=== PATIENT | female | born 2000 | race Caucasian/White ===

== ENCOUNTER 2021-01-08 19:38 | Inpatient (IN) | payer MEDICAID ==
[~2021-01-08] VITALS: Ht 160 cm; Wt 89.8 kg
[2021-01-08 19:41] VITALS: BP 137/79
[2021-01-08] MEDS ORDERED: FLUOXETINE HCL40 MG PO (19:53)
--- NOTE | 2021-01-08 20:09 | NUR ---
[facility] CONTACTED. THEY WILL FAX OVER INFORMATION, PHYLICIA NOTIFIED OF THEIR RECOMMENDATIONS.
--- NOTE | 2021-01-08 20:17 | NUR ---
GETS FLUOXETINE FROM FAMILY , IT COMES MAIL ORDER AND THEY SEND IT TO HER
[2021-01-08 20:26] LABS: AMP/METHAMP Negative (Negative); BARBITURATES Negative (Negative); BENZODIAZEPINES Negative (Negative); COCAINE Negative (Negative); METHADONE Negative (Negative); OPIATES Negative (Negative); PCP Negative (Negative)
[2021-01-08 20:31] LABS: ABSOLUTE NEUTROPHILS 6.3 thou/uL (1.4-8.2); BASOPHILS 0.2 % (0.0-2.0); EOSINOPHILS 0.6 % (0.0-3.0); HEMATOCRIT 37.9 % (37.0-47.0); HEMOGLOBIN 12.8 gm/dL (12.0-15.0); LYMPHOCYTES 24.7 % (24.0-44.0); MCHC 33.8 g/dL (28.0-37.0); MCV 88.8 fL (80.0-100.0); MONOCYTES 8.6 % (1.0-8.0); PLATELET COUNT 363 thou/uL (150-400); POLYS 65.9 % (36.0-66.0); RBC 4.27 mil/uL (4.20-5.00); RDW 12.7 % (10.5-14.5); WBC 9.6 thou/uL (4.0-11.0)
[2021-01-08 20:44] LABS: ANION GAP 7 mmol/L (7-16); BUN 9 mg/dL (7-18); CALCIUM 8.8 mg/dL (8.5-10.1); CHLORIDE 104 mmol/L (98-107); CO2 27 mmol/L (21-32); CREATININE 0.8 mg/dL (0.6-1.0); GLUCOSE 100 mg/dL (74-106); POTASSIUM 3.5 mmol/L (3.5-5.1); SODIUM 138 mmol/L (136-145)
[2021-01-08 20:50] LABS: ALBUMIN 3.6 g/dL (3.4-5.0); DIRECT BILIRUBIN < 0.1 mg/dL (<0.1-0.2); SALICYLATE < 2.8 mg/dL (2.8-20.0); SGOT 19 U/L (15-37); SGPT 29 U/L (14-59); TOTAL BILIRUBIN 0.3 mg/dL (0.2-1.0); TOTAL PROTEIN 7.5 g/dL (6.4-8.2)
[2021-01-08 21:32] VITALS: BP 123/81
[2021-01-08 21:56] VITALS: BP 118/70
--- NOTE | 2021-01-08 22:30 | NUR ---
Admission history and assessments completed. Care plan initiated. IV fluids started, Zofrn givn for nausea. Seizure precautions.
--- NOTE | 2021-01-08 23:30 | NUR ---
Witnessed tonic clonic seizures for approximately 2 minutes. Tachycardic post ictal.
[2021-01-08 23:48] VITALS: BP 123/72
[2021-01-09] VITALS (17 sets, daily range): BP systolic 103–140; BP diastolic 46–76
--- NOTE | 2021-01-09 01:00 | NUR ---
Meghna VILLELA updated with events. Repeat EKG shows prolonged QT, tachycardia. Medication orders received. Orders to transfer to ICU for closer monitoring.
[2021-01-09 02:02] LABS: CALCIUM 8.3 mg/dL (8.5-10.1); CREATININE 0.8 mg/dL (0.6-1.0); POTASSIUM 3.1 mmol/L (3.5-5.1)
--- NOTE | 2021-01-09 02:20 | NUR ---
Patient awake, vomited total 4x while on 3W. IVfluids infusing, Bicard and Lorazepam given. Transfered to 241-Report given to Muna SANCHEZ.
--- NOTE | 2021-01-09 02:35 | NUR ---
PT ARRIVED FROM VIA BED ACCOMPANIED BY NURSE, 1:1 SITTER, AND A DIALER. PRIOR TO PT ARRIVING THE ROOM WAS SWEPT OFF ALL OBJECTS AND SEIZURE PRECAUTIONS WERE PUT IN PLACE. PT CONNECTED TO ICU MONITOR AND ASSESSED PER PROTOCOL. PT REPORTS MILD NAUSEA, DIPLOPIA, AND STOMACH PAIN. PT IS ALERT AND ORIENTED. PT REPORTS WE CAN CONTACT HER MOM, BUT SHE DOES NOT KNOW HER PHONE NUMBER.
--- NOTE | 2021-01-09 06:30 | NUR ---
0451 - POISION CONTROL CALLED BACK TO FOLLOW UP ON PT. ASKING THAT WE TRY TO KEEP ELECTROLYTES IN THE HIGH/NORMAL RANGE AND WATCH FOR SIGNS OF SERATONIN SYNDROME. [facility]ISON [facility]OL DIRECT NUMBER: [phone] - ATTEMPTED TO REACH OUT TO PT MOM LEVON. PT IS MUCH MORE LUCID THIS AM, A&OX4 SAID WE COULD CONTACT MOM AND SHARE ALL INFORMATION WITH HER. MEDICAL RECORD HAS BEEN UPDATED. PT HAS NOT VOIDED SINCE ARRIVAL TO THE ICU AT 0217. PT WAS ABLE TO AMBULATE TO THE TOILET BUT WAS UNSUCCESSFUL. BLADDER SCAN SHOWED 457ML. PT IS REALLY AGAINST A ESPANA, WILL ATTEMPT TO URINATE AGAIN WITHIN THE HOUR.
[2021-01-09 06:48] LABS: MAGNESIUM 2.7 mg/dL (1.8-2.4); POTASSIUM 3.7 mmol/L (3.5-5.1)
--- NOTE | 2021-01-09 06:55 | EKG ---
[address] [address] ELECTROCARDIOGRAM REPORT Name: LESLEE LAWSON Room #: 241-P ADM IN M.R.#: [id number] Admission: 01/08/21 Attend Phys: Mustapha Duran MD Discharge: Date of : 00 Report #: [id number] [facility] ED Test Date: 2021-01-08 Test Time: 20:16:24 Pat Name: LESLEE LAWSON Department: Room: 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
--- NOTE | 2021-01-09 06:56 | EKG ---
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2000 Requested By: Meghna Banda Order Number: [id number] MD: Jose Brewer Measurements Intervals [place] Rate: 112 P: 68 [place]: 169 QRS: 43 QRSD: 82 T: 31 QT: 372 QTc: 508 Interpretive Statements Sinus tachycardia Prolonged QT interval Baseline wander in lead(s) V6 Compared to ECG 01/08/2021 20:16:24 Prolonged QT interval now present Sinus rhythm no longer present Electronically Signed On 01-09-2021 6:55:49 CDT by Jose Brewer [email or web address] <ELECTRONICALLY SIGNED> By: Jose Brewer MD, [facility] 01/09/21 0655 013 0133 Jose Brewer MD, [facility] /EPI
--- NOTE | 2021-01-09 08:50 | EKG ---
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
--- NOTE | 2021-01-09 09:02 | EKG ---
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
--- NOTE | 2021-01-09 10:30 | NUR ---
0815-UP TO TOILET TO VOID (NO SUCCESS) W MOD ASSIST X2 & GAIT BELT.PT W VISABLE TREMORS & EXTREMELY WEAK. PT VOMITED ALMOST IMMED p SITTING DOWN,LG AMT,~300ML) OF LIGHT YELLOW BILE. NAUSEA PERSISTS. CLEANED UP, BRUSHED HER TEETH,BACK TO BED & CASTILLO TRAVIS & EVERT IN. 1:1 SITTER AT BEDSIDE. ROOM HAD BEEN SCRUBBED,RECHECKED ON INITIAL TAKE OVER OF PT. PPT'S MOM CALLED IN TO OFFER THAT PT HAD CALLED HER THIS PAST WEDNESDAY,INFORMING HER OF HER MORE RECENT OVERDOSE ~2 WEEKS AGO.--VW
--- NOTE | 2021-01-09 12:05 | NUR ---
A #4F MIDLINE WAS PLACED FOR A PATIENT NEEDING ADDITIONAL ACCESS IN THE ICU. DISCUSSED PLACEMENT WITH THE PATIENT AND SHE VERBALIZED UNDERSTANDING OF RISKS AND BENIFITS. THE MIDLINE WAS TRIMMED TO 12CM AND ADVANCED WITHOUT DIFFICULTY PER HOSPITAL POLICY. LINE SECURED AND RELEASED FOR USE
--- NOTE | 2021-01-09 14:45 | NUR ---
tayler visited with brent at bedside, she has 1-1 sitter, SI. slow soft spoke. intro to cm and dcp. 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 she been inpt rehab in past in [place] for SI. lives with roommates, feels safe at home. independent when feeling ok. manage own medication, drives vehicle, no dme needs. will cont following as needed for dc needs. discussed during los, possible be her for few day before stable to dc to [facility] for therapy.
[2021-01-10 04:19] LABS: HEMATOCRIT 32.2 % (37.0-47.0); HEMOGLOBIN 11.2 gm/dL (12.0-15.0); MCH 31.1 pg (26.0-34.0); MCHC 34.7 g/dL (28.0-37.0); MCV 89.7 fL (80.0-100.0); RBC 3.59 mil/uL (4.20-5.00); WBC 8.7 thou/uL (4.0-11.0)
[2021-01-10 04:31] LABS: CALCIUM 8.1 mg/dL (8.5-10.1); CREATININE 0.6 mg/dL (0.6-1.0); POTASSIUM 3.8 mmol/L (3.5-5.1)
--- NOTE | 2021-01-10 06:04 | NUR ---
PT RESTING QUIETLY OFF AND ON. PUPILS 6, REACTIVE, DENIES PAIN, NAUSEA. AFFECTLY SLOWLY IMPROVING, SMILING MORE AND INTERACTING WITH STAFF. ENCOURAGED TO USE BATHROOM SEVERAL TIMES, BUT PT REFUSES, STATING SHE WENT LAST NIGHT AND DID NOT NEED TO GO. THIS RN ASSUMED CARE AT 2200, AND NEITHER TECH NOR THIS RN HAS HELPED PT TO BATHROOM. WILL CONT TO ENCOURAGE PT TO USE BATHROOM.
[2021-01-10 08:00] VITALS: BP 112/74
--- NOTE | 2021-01-10 08:30 | NUR ---
ASSUMMED CARE OF THIS PATIENT FROM THE NIGHT NURSE AT 0700 PATIENT IS ALERT AND COOPERATIVE. WILL ANSWER SIMPLE QUESTIONS. DENIES PLAN FOR SUICIDE.
[2021-01-10 09:00] VITALS: BP 101/68
--- NOTE | 2021-01-10 09:28 | NUR ---
discussed with dr keane and june, she possible be ready for dc thursday 01/11, she will need inpt pysch rt SI, intentional SI overdose on prozac. cm called [place] medicaid, they unable to took up member rt hospital in [place] medicaid, so as of now she is pat. will send referral to [place] facility for [facility]pt pysch ( [facility], [facility] and [facility]).
[2021-01-10 10:00] VITALS: BP 105/66
[2021-01-10 12:00] VITALS: BP 112/71
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
--- NOTE | 2021-01-10 14:44 | NUR ---
1400 PATIENT TRANSFERRED TO 3W ROOM 358 VIA W/C ON LANGUAGE AND LITERATURE DIVISION CHAIR, WITH SITTER. PATIENT REMAINS ALERT AND COOPERATIVE, CONVERSING WITH THE NURSING STAFF. WILLING TO DISCUSS TATOOES SUCH THE ONE ON THE BACK OF HER NECK, I AM CHOOSEN. PATIENT STATES THAT HER PHONE IS LOCKED UP IN A LOCKER. NO PHONE IN THE LOCKED CABINET IN THE PATIENT ROOM.
[2021-01-10 15:41] VITALS: BP 113/72
[2021-01-10 20:58] VITALS: BP 115/65
[2021-01-11 05:21] VITALS: BP 112/61
[2021-01-11 05:34] LABS: HEMOGLOBIN 12.3 gm/dL (12.0-15.0); MCH 29.8 pg (26.0-34.0); MCHC 33.3 g/dL (28.0-37.0); MCV 89.6 fL (80.0-100.0); RBC 4.13 mil/uL (4.20-5.00); RDW 12.7 % (10.5-14.5); WBC 7.8 thou/uL (4.0-11.0)
[2021-01-11 05:49] LABS: CALCIUM 8.8 mg/dL (8.5-10.1); CREATININE 0.7 mg/dL (0.6-1.0)
--- NOTE | 2021-01-11 05:52 | NUR ---
Pt. stated she slept like a rock last night. Sitter at bedside. No suicidal ideation. Denies nausea or vomitimg and double vision has resolved. No seizure activities. Pupils remain dilated. Makng some progress towards care plan goals.
[2021-01-11 08:04] VITALS: BP 105/51
--- NOTE | 2021-01-11 14:43 | NUR ---
faxed paperwork to [facility] and [facility] requesting inpatient psychiatric bed. [facility] says they are currently at capacity. awaiting response.
[2021-01-11 18:59] VITALS: BP 109/67
[2021-01-12 05:29] VITALS: BP 109/69
[2021-01-12 07:09] VITALS: BP 114/80
[2021-01-12 16:30] VITALS: BP 126/61
--- NOTE | 2021-01-12 17:07 | NUR ---
called [facility] regarding update on bed - no update given - says they will call back with update.
[2021-01-12 19:50] VITALS: BP 114/73
--- NOTE | 2021-01-13 04:26 | NUR ---
Pt. has slept well during the night. Sitter at bedside. No suicidal ideation. Making some progress towards care plan goals.
[2021-01-13 04:45] VITALS: BP 127/78
--- NOTE | 2021-01-13 18:32 | NUR ---
ASSUMED PATIENT CARE AT 0700. A/O X4. NO DISTRESS NOTED. SISTER WITH PATIENT. SLOWLY TOWARDS POC GOALS.
[2021-01-13 21:18] VITALS: BP 116/69
--- NOTE | 2021-01-13 22:23 | HC ---
[facility] [place] [address] CONSULTATION Name: LESLEE LAWSON Room #: 358-P ADM IN M.R.#: [id number] Admission: 01/08/21 Attend Phys: Aron Templeton MD Discharge: Date of : 00 Report #: [id number] THIS REPORT FOR: cc: NO FAMILY PHYSICIAN or PCP NO FAMILY PHYSICIAN or PCP Rocky Trevino MD ~ DOC #: [id number] Rocky Trevino MD DATE OF SERVICE: 01/09/2021 HISTORY OF PRESENT ILLNESS: This is a 20-year-old female patient who was evaluated by me because of a question of seizures after overdose with the Prozac. She has taken Prozac for a long time. Then, she overdosed on it and yesterday she was having some tremulous activity. It is not certain whether they were seizures or not. She was given a gram of Keppra. She has not had any episodes since then. Her EEG was done and that shows no epileptiform activity. REVIEW OF SYSTEMS: A 14-point review of system was carried out in this patient. She took about 90 tablets of fluoxetine. She is tremulous. Her pupils are dilated. A 14-point review of system is positive for depression. Now, she has done this intentional overdose. Rest of the 14-point review of system was noncontributory. PAST MEDICAL HISTORY: Negative for ____ FAMILY HISTORY: Unremarkable. SOCIAL HISTORY: She denies any abuse of alcohol. PHYSICAL EXAMINATION: NEUROLOGIC: She is alert. She is responsive. She can talk and she can tell me what month it is. Cranial nerve examination indicates dilated pupil, but otherwise she is not having any pain there. Neuromuscular examination is unremarkable. There is no meningeal sign. There is no carotid bruit. It looks like she has some tremor in both upper extremities. GENERAL: She is an obese individual whose hearing and vision is adequate. VITAL SIGNS: Blood pressure is 113/68, respirations 13, pulse is 99. LABORATORY DATA: White count is 9.6, calcium is a trace low. IMPRESSION: This patient is admitted with fluoxetine toxicity. As I understood from nurse practitioner last night, they have already called Poison Control and following the instructions. Neurologically, I do not think we need to do anything different in this patient. She does not have any more symptoms and she will progressively become better. I noticed that no imaging study was done in this patient, but since she had a question of seizure, I will suggest doing an [facility] [address] [place] [address] CONSULTATION Name: LESLEE LAWSON Room #: 358-P [facility].#: [id number] Admission: 01/08/21 Attend Phys: Aron Templeton MD Discharge: Date of : 00 Report #: [id number] imaging study, like at least a CAT scan in this patient. I will discuss all of it with the hand profiler. Thank you very much for this referral. MD ARRON Vogt/BRENDAN/MEKA <ELECTRONICALLY SIGNED> By: Rocky Trevino MD 01/13/21 2223 1257 2147 Rocky Trevino MD /nt
--- NOTE | 2021-01-13 22:23 | EEG ---
[facility] [place] [address] ELECTROENCEPHALOGRAM Name: LESLEE LAWSON Room #: 358-P ADM IN M.R.#: [id number] Admission: 01/08/21 Attend Phys: Aron Templeton MD Discharge: Date of : 00 Report #: [id number] THIS REPORT FOR: //name// DOC #: [id number] Rocky Trevino MD DATE OF SERVICE: 01/09/2021 This patient is being evaluated for the possibility of a seizure. EEG was done by placing the electrode by standard 10-20 system of electrode placement. Both referential and sequential montages were used for recording. Background activity is intermixed with fast beta activity probably because of the patient's medications and therefore difficult to determine, but it looks like it is about 10-11 Hz. The patient was drowsy and that is associated with bilateral slowing. Photic stimulation is unremarkable. IMPRESSION: This patient's EEG does not demonstrate any active epileptiform activity. Thank you very much for this referral. Rocky Trevino MD PK/PRE/LA <ELECTRONICALLY SIGNED> By: Rocky Trevino MD 01/13/21 2223 1011 1030 Rocky Trevino MD /nt
[2021-01-14 03:50] VITALS: BP 96/62
[2021-01-14 07:30] VITALS: BP 119/81
--- NOTE | 2021-01-14 08:03 | NUR ---
1:1 STAFF AT BEDSIDE THROUGHOUT THE NIGHT.
--- NOTE | 2021-01-14 08:11 | NUR ---
THIS RN ASSUMED PT CARE AT SHIFT CHANGE. PT NOW HAS A SINGLE FEMALE VISITOR IN ROOM. 1:1 SITTER IN ROOM WELL WITH PT IN FULL VIEW. THIS RN CALLED DR GRIGSBY FOR CLARIFICATION OF VISITOR/USE OF PHONE. DR GRIGSBY REQUESTED CONTACT NUMBERS OF FRIENDS/VISITORS, STATES THE HOSPITALIST PROVIDED PERMISSIONS FOR VISITORS AND USE OF CELL PHONE. NAMES/CONTACT NUMBERS OF VISITORS RECORDED ON 1:1 SHEET.
--- NOTE | 2021-01-14 10:42 | NUR ---
TIM reviewed chart and spoke with nursing and attending physician. Pt transferred to from ICU on Wednesday, 01/10. Pt is medically stable for discharge to an inpt psych facility. Pt has 1:1 sitter present at bedside. TIM placed call to [facility] and spoke to Marily in intake, who states [facility] does not have any beds available and are prioritizing their pts in their ER. TIM spoke with Janiya at [facility] and Stacia at [facility] who states they are willing to review pt's info, but are unsure of their bed availability at this time. TIM placed call to [facility] bed pager and received call back stating they are willing to review pt's info as well. TIM faxed referrals to [facility], [facility] and [facility] for review. TIM is following to assist as needed with discharge planning.
[2021-01-14 10:55] VITALS: BP 122/72
[2021-01-14 13:46] LABS: ABSOLUTE NEUTROPHILS 6.5 thou/uL (1.4-8.2); BASOPHILS 0.4 % (0.0-2.0); EOSINOPHILS 0.7 % (0.0-3.0); HEMATOCRIT 38.6 % (37.0-47.0); HEMOGLOBIN 13.1 gm/dL (12.0-15.0); LYMPHOCYTES 18.6 % (24.0-44.0); MCHC 33.9 g/dL (28.0-37.0); MCV 88.3 fL (80.0-100.0); MONOCYTES 7.8 % (1.0-8.0); PLATELET COUNT 379 thou/uL (150-400); POLYS 72.5 % (36.0-66.0); RBC 4.37 mil/uL (4.20-5.00); RDW 12.9 % (10.5-14.5)
[2021-01-14 13:58] LABS: CALCIUM 9.1 mg/dL (8.5-10.1); CREATININE 0.7 mg/dL (0.6-1.0); POTASSIUM 3.9 mmol/L (3.5-5.1)
[2021-01-14] MEDS ORDERED: SEROQUEL XR 20200 MG PO (15:51)
[2021-01-14 16:40] VITALS: BP 118/81
--- NOTE | 2021-01-14 18:33 | NUR ---
REPORT GIVEN TO [facility]. CHECKED ETA FOR TRANSPORT, PT WAS 5-6 ON THE LIST APPROXIMATELY AT 1800.
[2021-01-14 19:40] VITALS: BP 103/63
--- NOTE | 2021-01-15 08:41 | NUR ---
TIM received call from Anisa at [facility] at [phone] this morning requesting the original copy of signed/notarized affidavit. SW reviewed chart this morning. Copy of affidavit on pt's chart. TIM spoke with pt's nurse, Giuliana, at [facility] who states that she will review ppwk sent with pt. TIM is available to assist should additional needs arise.
== END 2021-01-14 23:06 | DRG 918 ==
LOC: ER 19:38 → EROBS 21:11 → ICU 21:11 → 3W 21:11 → ICU 01-09 01:54 → 3W 01-10 14:31
PROVIDERS: Internal Medicine; Nurse Practitioner; Nurse Practitioner Family; Psychiatry & Neurology Neuromuscular Medicine; ADMIT Hospitalist; ATTEND Hospitalist
DX: T43.222A Poisoning by selective serotonin reuptake inhibitors, intentional self-harm, initial encounter (principal); R45.851 Suicidal ideations; F33.9 Major depressive disorder, recurrent, unspecified; F41.9 Anxiety disorder, unspecified; Y92.89 Other specified places as the place of occurrence of the external cause; Z86.16 Personal history of COVID-19; Z83.3 Family history of diabetes mellitus; Z20.822 Contact with and (suspected) exposure to COVID-19
CPT/HCPCS: 10078; 10779; 10879; 27000